=== PATIENT | female | born 2000 | race Caucasian/White ===

== ENCOUNTER 2021-06-04 14:45 | Emergency (ER) | payer OTHER ==
[~2021-06-04] VITALS: Ht 160 cm; Wt 71.7 kg
[2021-06-04 14:53] VITALS: BP 130/76
--- NOTE | 2021-06-04 14:57 | NUR ---
Pt ambulated to bed, steady gait
[2021-06-04] MEDS ORDERED: NACL 0.9% 1,000 ML IV ONE (15:05)
[2021-06-04] MEDS ORDERED: METOCLOPRAMIDE 10 MG/2 ML INJ VIAL IVP ONE (15:05)
[2021-06-04] MEDS ORDERED: diphenhydrAMINE 50 MG/ML VIAL IVP ONE (15:05)
--- NOTE | 2021-06-04 15:11 | NUR ---
dr. sharpe bedside evaluating pt
--- NOTE | 2021-06-04 15:15 | NUR ---
21 y/o F BIB self from home for referral from Dr. Daley for dx hyperemesis gravidarum and evaluation of nausea/vomiting x 1 month and 10 lb weight loss in past 2 weeks. Patient A&Ox4, ambulatory, 7 weeks reports decreased appetite and vomiting an average of 3-4 times a day. Pt reports vomiting x 1 episode today prior to arrival. Denies medications prior to arrival. States taking prenatals, however, unable to keep down. Pt also reports intermittent dizziness and "little blurry vision." Denies other medications prior to arrival. Denies abdominal pain, dysuria, fever, chills, constipation, diarrhea. [id number]. Bed locked in lowest position, side rails x 1. PMH/Sx/Meds: Denies NKDA
--- NOTE | 2021-06-04 15:20 | NUR ---
Blood sample collected, walked to lab and handed to CPT. Any
[2021-06-04 15:34] LABS: BILIRUBIN,URINE NEGATIVE (NEGATIVE); BLOOD, URINE NEGATIVE (NEGATIVE); COLOR,URINE YELLOW (YELLOW); LEUKOCYTE ESTERASE ,URINE 1+ (NEGATIVE); NITRITE, URINE NEGATIVE (NEGATIVE); UGLUCOSE NEGATIVE (NEGATIVE)
[2021-06-04 15:48] LABS: APPEARANCE,URINE HAZY (CLEAR)
[2021-06-04 15:52] LABS: BASOPHILS % (AUTO) 0.4 % (0.0-2.0); EOSINOPHILS # (AUTO) 0.1 K/uL (0-0.4); EOSINOPHILS % (AUTO) 1.5 % (0.0-4.0); HEMATOCRIT 38.8 % (36-48); HEMOGLOBIN 13.4 g/dL (12.0-16.0); LYMPHOCYTES # (AUTO) 1.6 K/uL (2.5-16.5); LYMPHOCYTES % (AUTO) 17.2 % (20.5-51.1); MEAN CORPUSCULAR HEMOGLOBIN 30 pg (27-31); MEAN CORPUSCULAR HGB CONC 35 g/dL (33-37); MONOCYTES # (AUTO) 0.7 K/uL (0.8-1.0); NEUTROPHILS # (AUTO) 6.8 K/uL (1.8-7.7); NEUTROPHILS % (AUTO) 72.9 % (42.2-75.2); PLATELET COUNT (AUTO) 195 K/uL (140-450); RED BLOOD CELL COUNT(AUTO) 4.47 MIL/uL (4.20-5.40); RED CELL DISTRIBUTION WIDTH 12.7 % (11.6-13.7); WHITE BLOOD COUNT (AUTO) 9.3 K/uL (4.8-10.8)
[2021-06-04 15:59] LABS: ALBUMIN 3.8 g/dL (3.4-5.0); ANION GAP 15.2 (8-16); CARBON DIOXIDE 24.3 mmol/L (21-32); CREATININE 0.6 mg/dL (0.6-1.3); POTASSIUM 3.5 mmol/L (3.5-5.1)
[2021-06-04 16:04] LABS: RBC,URINE NONE SEEN /HPF (0-5); WBC,URINE 0-5 /HPF (0-5)
--- NOTE | 2021-06-04 16:06 | NUR ---
Patient states she feels a lot better; denies nausea at this time. States "I'm ready to go home." Dr. Puentes made aware.
[2021-06-04 16:11] LABS: TOTAL BILIRUBIN 0.2 mg/dL (0.0-1.0)
[2021-06-04] MEDS ORDERED: CEPH-588 PO (16:42)
[2021-06-04] MEDS ORDERED: METO-485 PO (16:43)
[2021-06-04] MEDS ORDERED: DOXY1TCP PO (16:43)
[2021-06-04] MEDS ORDERED: cephALEXin 500 MG CAP PO ONE (16:45)
[2021-06-04 16:58] VITALS: BP 114/66
--- NOTE | 2021-06-04 17:00 | NUR ---
Patient discharged with v/s stable. Written and verbal after care instructions given and explained for Hyperemesis Gravidarum, UTI. Work note provided. Patient alert, oriented and verbalized understanding of instructions. Ambulatory with steady gait. All questions addressed prior to discharge. ID band removed. Patient advised to follow up with PMD. Rx of Reglan, keflex, Diclegis given. Patient educated on indication of medication including possible reaction and side effects. Opportunity to ask questions provided and answered.
== END 2021-06-04 17:00 | disposition home or self-care (01) ==
LOC: MED 14:45
DX: O23.41 Unspecified infection of urinary tract in pregnancy, first trimester (principal); O21.0 Mild hyperemesis gravidarum; Z3A.01 Less than 8 weeks gestation of pregnancy; Z79.899 Other long term (current) drug therapy
CPT/HCPCS: 36415; 80053; 81001; 81025; 82150; 83690; 85025; 87086; 96361; 96374; 96375; 99284; J1200; J2765; J7030